=== PATIENT | female | born 1990 | race Caucasian/White ===

== ENCOUNTER 2017-12-18 20:16 | Emergency (ER) | payer OTHER ==
[~2017-12-18] VITALS: Ht 170.2 cm; Wt 68.0 kg
[2017-12-18] MEDS ORDERED: LEVE500 PO (20:28)
== END 2017-12-18 20:56 | disposition home or self-care (01) ==
LOC: ER 20:16
DX: S60.211A Contusion of right wrist, initial encounter (principal); M77.9 Enthesopathy, unspecified; F17.210 Nicotine dependence, cigarettes, uncomplicated; Z88.6 Allergy status to analgesic agent; Z88.8 Allergy status to other drugs, medicaments and biological substances; Z79.899 Other long term (current) drug therapy; X58.XXXA Exposure to other specified factors, initial encounter; Y93.E3 Activity, vacuuming
CPT/HCPCS: 29125; 73100; 99283-25